=== PATIENT | male | born 1950 | race Caucasian/White ===

== ENCOUNTER 2017-06-12 12:38 | Observation (INO) | payer OTHER ==
[2017-06-12] MEDS ORDERED: NS 1,000 ML IV ONE (13:40)
--- NOTE | 2017-06-12 13:44 | EDPHY ---
HPI/HX/ROS/PE/MDM Narrative: CHIEF COMPLAINT: Possible GI Bleed HPI: This patient is a 67 year old male presenting for evaluation of a possible GI bleed. Four or five days ago, he began feeling lightheaded when he stood up. This has worsened progressively and now he feels lightheaded and as if his heart is racing if he stands or walks. He feels alright when he is sitting. Today, blood tests showed him to be very anemic, and his primary care provider referred him to the emergency department for further evaluation. The patient has noted dark stools, but denies melena or hematochezia. He denies abdominal pain or vomiting. The patient takes frequent aspirin, sometimes three times daily. His at beside reports that he has history of ulcers with hematemesis about 10 years ago. REVIEW OF SYSTEMS: Aside from elements discussed in the HPI, a comprehensive 10-point review of systems was reviewed and is negative. PMH: Hypertension. Back pain. History of gastric ulcers. SOCIAL HISTORY: . at bedside. Retired. PHYSICAL EXAM: General:Patient is alert, in no acute distress. ENT:Eyes are normal to inspection. ENT inspection normal. Neck: Normal inspection. Full range of motion. Respiratory:No respiratory distress. Breath sounds normal bilaterally. Cardiovascular: Regular rate and rhythm. Strong peripheral pulses. Normal cap refill. Abdomen:The abdomen is nontender to palpation. There are no peritoneal signs. There are normal bowel sounds. Back: Normal to inspection. No tenderness to palpation. Skin: Normal color. No rash. Warm and dry. Extremities: Normal appearance. Full range of motion. Neuro: Oriented x3. Normal motor function. Normal sensory function. ED Course: 67 y/o male presents with anemia and likely GI bleed. Plan for IV fluids, repeat labs including CBC, chemstrip, Coag, type and screen. Packed blood products ordered. Plan for admission. Patient will undergo gastroenterology consult and scope. The patient is comfortable with this plan. Patient's primary care physician consulted with gastroenterology prior to his arrival in the emergency department. Dr. Linda will consult. Patient is severely anemic. Hematocrit 20.5. 14:[address] Ureña, hospitalist. He accepts admission for anemia, GI bleed. MDM: This patient presents with severe symptomatic anemia, likely from UGIB. There are no signs of shock, sepsis, ACS, AAA or airway compromise. - Data Points Laboratory Results: Laboratory Results 06/12/17 13:49 06/12/17 13:49 06/12/17 06/12/17 06/12/17 13:49 13:49 13:49 WBC RBC Hgb Hct MCV MCH MCHC RDW Plt Count MPV Neut % (Auto) Lymph % (Auto) [place] % (Auto) Eos % (Auto) Baso % (Auto) Nucleat RBC Rel Count Absolute Neuts (auto) Absolute Lymphs (auto) Absolute Monos (auto) Absolute Eos (auto) Absolute Basos (auto) Absolute Nucleated RBC Immature Gran % Immature Gran # Platelet Estimate Polychromasia Smear Review By PT 13.5 SEC SEC (12.0-15.0) INR 1.01 (0.83-1.16) APTT 24.7 SEC SEC (23.0-38.0) Sodium 137 mEq/L mEq/L (135-145) Potassium 3.0 mEq/L L mEq/L (3.5-5.2) Chloride 100 mEq/L mEq/L (97-110) Carbon Dioxide 26 mEq/l mEq/l (22-31) Anion Gap 11 mEq/L mEq/L (8-16) BUN 34 mg/dL H mg/dL (7-23) Creatinine 1.2 mg/dL mg/dL (0.7-1.3) Estimated GFR > 60 Glucose 113 mg/dL H mg/dL (70-100) Calcium 8.8 mg/dL mg/dL (8.5-10.4) Patient ABO/Rh B POSITIVE Antibody Screen NEGATIVE Crossmatch IS Only See Detail 06/12/17 13:49 WBC 10.84 10^3/uL H 10^3/uL (3.80-9.50) RBC 2.23 10^6/uL L 10^6/uL (4.40-6.38) Hgb 6.9 g/dL L g/dL (13.7-17.5) Hct 20.5 % L % (40.0-51.0) MCV 91.9 fL fL (81.5-99.8) MCH 30.9 pg pg (27.9-34.1) MCHC 33.7 g/dL g/dL (32.4-36.7) RDW 19.0 % H % (11.5-15.2) Plt Count 232 10^3/uL 10^3/uL (150-400) MPV 9.7 fL fL (8.7-11.7) Neut % (Auto) 72.8 % % (39.3-74.2) Lymph % (Auto) 17.8 % % (15.0-45.0) [place] % (Auto) 6.6 % % (4.5-13.0) Eos % (Auto) 1.4 % % (0.6-7.6) Baso % (Auto) 0.4 % % (0.3-1.7) Nucleat RBC Rel Count 0.6 % H % (0.0-0.2) Absolute Neuts (auto) 7.89 10^3/uL H 10^3/uL (1.70-6.50) Absolute Lymphs (auto) 1.93 10^3/uL 10^3/uL (1.00-3.00) Absolute Monos (auto) 0.72 10^3/uL 10^3/uL (0.30-0.80) Absolute Eos (auto) 0.15 10^3/uL 10^3/uL (0.03-0.40) Absolute Basos (auto) 0.04 10^3/uL 10^3/uL (0.02-0.10) Absolute Nucleated RBC 0.06 10^3/uL H 10^3/uL (0-0.01) Immature Gran % 1.0 % % (0.0-1.1) Immature Gran # 0.11 10^3/uL H 10^3/uL (0.00-0.10) Platelet Estimate ADEQUATE (ADEQ) Polychromasia 1+ H Smear Review By Pending PT INR APTT Sodium Potassium Chloride Carbon Dioxide Anion Gap BUN Creatinine Estimated GFR Glucose Calcium Patient ABO/Rh Antibody Screen Crossmatch IS Only Medications Given: Discontinued Medications Sodium Chloride (Ns) 1,000 mls @ 0 mls/hr IV EDNOW ONE; Wide Open PRN Reason: Protocol Stop: 06/12/17 13:41 Last Admin: 06/12/17 13:53 Dose: 1,000 mls General Time Seen by Provider: 06/12/17 13:39 Initial Vital Signs: Initial Vital Signs Temperature (C) 36.8 C 06/12/17 12:41 Heart Rate 77 06/12/17 12:41 Respiratory Rate 16 06/12/17 12:41 Blood Pressure 143/73 H 06/12/17 12:41 O2 Sat (%) 100 06/12/17 12:41 O2 Delivery Mode Room Air Allergies/Adverse Reactions: No Known Allergies Allergy (Verified 06/12/17 14:10) Home Medications: Medication Instructions Recorded Aspirin [Aspirin 325 mg (*)] 325 mg PO DAILY 06/12/17 Atenolol/Chlorthalidone 1 each PO DAILY 06/12/17 [Atenolol-Chlorthal 50-25 Tb] Atorvastatin Calcium [Lipitor 40 40 mg PO DAILY 06/12/17 mg (*)] Ferrous Sulfate [Ferrous Sulf 325 325 mg PO DAILY 06/12/17 MG (*)] Herbals/Supplements -Info Only 1 ea PO DAILY 06/12/17 Departure - Departure Disposition: [facility] Inpatient Acute Clinical Impression: Anemia Qualifiers: Anemia type: other cause Other causes of anemia: acute posthemorrhagic Qualified Code(s): D62 - Acute posthemorrhagic anemia GI bleed Qualifiers: GI bleed type/associated pathology: unspecified gastrointestinal hemorrhage type Qualified Code(s): K92.2 - Gastrointestinal hemorrhage, unspecified Condition: Fair Report Scribed for: Vitaly Christianson Report Scribed by: Meron Machuca Date of Report: 06/12/17 Time of Report: 13:55 Physician Review and Approval Statement: Portions of this note were transcribed by an ED scribe. I personally performed the history, physical exam, and medical decision making; and confirm the accuracy of the information in the transcribed note.
[2017-06-12 14:02] LABS: PLATELET COUNT 232 10^3/uL (150-400)
[2017-06-12 14:12] LABS: INR 1.01 (0.83-1.16); PROTIME(PATIENT) 13.5 SEC (12.0-15.0)
[2017-06-12] MEDS ORDERED: ACETAMINOPHEN 325 MG TAB PO PRN (14:43)
[2017-06-12] MEDS ORDERED: ONDANSETRON DISINTEGRATING 4 MG TAB PO PRN (14:43)
[2017-06-12] MEDS ORDERED: ONDANSETRON 4 MG/2 ML VIAL IVP PRN (14:43)
[2017-06-12] MEDS ORDERED: NS W/ 20 KCl/L 1,000 ML IV SCH (14:45)
[2017-06-12] MEDS ORDERED: PANTOPRAZOLE SODIUM 40 MG VIAL IVP ONE (16:11)
[2017-06-12] MEDS ORDERED: traMADol 50 MG TAB PO PRN (16:12)
--- NOTE | 2017-06-12 16:15 | PDGENHP ---
History and Physical - Chief Complaint Acute lightheadedness - History of Present Illness Primary care provider: Dr. Son HPI: 67-year-old male presenting with acute lightheadedness characterized as dizzy, weak feeling exacerbated by standing up with onset of symptoms approximately 4-5 days ago. He has noted that the duration has been persistent and has evolved into lightheadedness with any level of ambulation, alleviated by rest. He denies any black or bloody stool, but does report associated dark, hard stool. He also or says that he uses between 2-3 mzjt-seg-nlvwyge aspirin per day, to alleviate his back pain. He has not been using any acid blocking medications consistently. He otherwise denies any fever chills or infectious symptoms. History Information - Allergies/Home Medication List Allergies/Adverse Reactions: No Known Allergies Allergy (Verified 06/12/17 14:10) Home Medications: Aspirin [Aspirin 325 mg (*)] 325 mg PO DAILY 06/12/17 [Last Taken 06/12/17] Atenolol/Chlorthalidone [Atenolol-Chlorthal 50-25 Tb] 1 each PO DAILY 06/12/17 [ Last Taken 06/11/17] Atorvastatin Calcium [Lipitor 40 mg (*)] 40 mg PO DAILY 06/12/17 [Last Taken 3 Days Ago ~06/09/17] Ferrous Sulfate [Ferrous Sulf 325 MG (*)] 325 mg PO DAILY 06/12/17 [Last Taken 06/12/17] Herbals/Supplements -Info Only 1 ea PO DAILY 06/12/17 [Last Taken Unknown] I have personally reviewed and updated: family history, medical history, social history, surgical history - Past Medical History Additional medical history: Upper GI bleed approximately 10 years ago secondary to NSAID use, utilized PPI at that time. Nephrolithiasis with lithotripsy. Hypertension - Surgical History Additional surgical history: Cystoscopy. Back surgery. Upper endoscopy 10 years ago. Most recent colonoscopy reportedly normal 2 years ago - Family History Additional family history: No family history of GI malignancy - Social History Smoking Status: Never smoked Alcohol Use: Rarely Drug Use: None Additional social history: Independent in his ADLs Review of Systems Review of Systems: ROS: 10pt was reviewed & negative except for what was stated in HPI & below Constitutional: Reports: weakness Gastrointestinal: Reports: other (Dark hard stools) Neurological: Reports: other (Lightheadedness) Physical Exam Physical Exam: Temp Pulse Resp BP Pulse Ox 36.7 C 73 14 121/55 H 96 06/12/17 16:02 06/12/17 16:02 06/12/17 16:02 06/12/17 16:02 06/12/17 16:02 Constitutional: no apparent distress, appears nourished, not in pain Eyes: PERRL, anicteric sclera, EOMI, pale conjunctiva Ears, Nose, Mouth, Throat: moist mucous membranes, hearing normal, ears appear normal, no oral mucosal ulcers Cardiovascular: regular rate and rhythym, no murmur, rub, or gallop, No edema Respiratory: no respiratory distress, no rales or rhonchi, clear to auscultation Gastrointestinal: normoactive bowel sounds, soft, non-tender abdomen, no palpable masses, No distension Skin: No abrasion, No rash Musculoskeletal: other (No tenderness over the vertebrae bodies or paraspinal muscles) Neurologic: AAOx3, sensation intact bilaterally, No weakness Psychiatric: interacting appropriately, not anxious, not encephalopathic, thought process linear Lab Data & Imaging Review 06/12/17 13:49 06/12/17 13:49 WBC 10.84 10^3/uL (3.80-9.50) H 06/12/17 13:49 RBC 2.23 10^6/uL (4.40-6.38) L 06/12/17 13:49 Hgb 6.9 g/dL (13.7-17.5) L 06/12/17 13:49 Hct 20.5 % (40.0-51.0) L 06/12/17 13:49 MCV 91.9 fL (81.5-99.8) 06/12/17 13:49 MCH 30.9 pg (27.9-34.1) 06/12/17 13:49 MCHC 33.7 g/dL (32.4-36.7) 06/12/17 13:49 RDW 19.0 % (11.5-15.2) H 06/12/17 13:49 Plt Count 232 10^3/uL (150-400) 06/12/17 13:49 MPV 9.7 fL (8.7-11.7) 06/12/17 13:49 Neut % (Auto) 72.8 % (39.3-74.2) 06/12/17 13:49 Lymph % (Auto) 17.8 % (15.0-45.0) 06/12/17 13:49 Price % (Auto) 6.6 % (4.5-13.0) 06/12/17 13:49 Eos % (Auto) 1.4 % (0.6-7.6) 06/12/17 13:49 Baso % (Auto) 0.4 % (0.3-1.7) 06/12/17 13:49 Nucleat RBC Rel Count 0.6 % (0.0-0.2) H 06/12/17 13:49 Absolute Neuts (auto) 7.89 10^3/uL (1.70-6.50) H 06/12/17 13:49 Absolute Lymphs (auto) 1.93 10^3/uL (1.00-3.00) 06/12/17 13:49 Absolute Monos (auto) 0.72 10^3/uL (0.30-0.80) 06/12/17 13:49 Absolute Eos (auto) 0.15 10^3/uL (0.03-0.40) 06/12/17 13:49 Absolute Basos (auto) 0.04 10^3/uL (0.02-0.10) 06/12/17 13:49 Absolute Nucleated RBC 0.06 10^3/uL (0-0.01) H 06/12/17 13:49 Immature Gran % 1.0 % (0.0-1.1) 06/12/17 13:49 Immature Gran # 0.11 10^3/uL (0.00-0.10) H 06/12/17 13:49 Platelet Estimate ADEQUATE (ADEQ) 06/12/17 13:49 Polychromasia 1+ H 06/12/17 13:49 PT 13.5 SEC (12.0-15.0) 06/12/17 13:49 INR 1.01 (0.83-1.16) 06/12/17 13:49 APTT 24.7 SEC (23.0-38.0) 06/12/17 13:49 Sodium 137 mEq/L (135-145) 06/12/17 13:49 Potassium 3.0 mEq/L (3.5-5.2) L 06/12/17 13:49 Chloride 100 mEq/L (97-110) 06/12/17 13:49 Carbon Dioxide 26 mEq/l (22-31) 06/12/17 13:49 Anion Gap 11 mEq/L (8-16) 06/12/17 13:49 BUN 34 mg/dL (7-23) H 06/12/17 13:49 Creatinine 1.2 mg/dL (0.7-1.3) 06/12/17 13:49 Estimated GFR > 60 06/12/17 13:49 Glucose 113 mg/dL (70-100) H 06/12/17 13:49 Calcium 8.8 mg/dL (8.5-10.4) 06/12/17 13:49 Patient ABO/Rh B POSITIVE 06/12/17 13:49 Antibody Screen NEGATIVE 06/12/17 13:49 Crossmatch IS Only See Detail 06/12/17 13:49 Assessment & Plan Assessment: 67-year-old male presents with suspected acute blood loss anemia secondary to suspected acute on chronic upper gastrointestinal hemorrhage Plan: 1. Suspected acute blood loss anemia. New problem this provider, further workup indicated. Evidenced by hemoglobin level of 6.8, detected after the patient's primary care provider ordered outpatient CBC, corresponds to patient' s symptoms generalized weakness and lightheadedness -discussed with Dr. Vitaly Christianson in the emergency department, he has reported to me that the patient has been ordered for 2 units of packed red blood cells -recommend follow-up hemoglobin level, either tomorrow a.m., or as an outpatient 2. Suspected acute on chronic upper gastrointestinal hemorrhage. Given the patient's elevated BUN, dark, hard stool without any overt melena or hematochezia, suspect the most likely cause is intermittent bleeding upper GI ulcer in the setting of nonsteroidal anti-inflammatory medication use without any GI prophylactic medication -discussed with Dr. john Linda, he reports to me that he will perform upper endoscopy today, keep patient NPO with IV fluids -IV pantoprazole 40 mg twice daily, will discharge with oral medication depending on upper endoscopy results -hold nonsteroidal anti-inflammatory medications 3. Chronic back pain. Patient takes NSAIDs chronically for this issue, advise the patient that he should utilize non NSAID methods, Tylenol and Ultram ordered , will provide him with a limited supply and recommend outpatient PCP follow-up hereafter 4. Hypokalemia. Likely secondary to poor oral intake, replete with IV fluids recheck as outpatient or in a.m. 5. Nephrolithiasis. Chronic, reviewed outside records including 06/02/2008 history and physical [address] Dr. Suleiman Justice, recounting patient's history of nephrolithiasis and indication for cysto -patient is currently not experiencing any abdominal pain or any hematuria 6. Hypertension. Chronic, hold patient's home combination medication given marginally elevated creatinine level and hypokalemia Diet. NPO with IV fluids Prophylaxis. Moderate risk patient, SCDs, hold pharm given possibility of bleed Code. Vira Collier is his MD POA Disposition. Anticipated discharge is either late in the day on 06/12, or 4/5 a.m., depending on upper endoscopy results and timing of blood transfusion, this history and physical was conducted at 2:45 p.m. On 06/12.
[2017-06-12] MEDS ORDERED: MIDAZOLAM 2 MG/2 ML VIAL ONE ×2 (17:43→18:17)
[2017-06-12] MEDS ORDERED: fentaNYL 100 MCG/2 ML INJ ONE (17:44)
[2017-06-12] MEDS ORDERED: NS 500 ML IV SCH (17:45)
--- NOTE | 2017-06-12 18:37 | PDHPUP ---
History & Physical Update H&P update statement: This history and physical update is based on an assessment of the patient which was completed after admission or registration (within 24 hours), but prior to the surgery/procedure. H&P update: H&P reviewed & patient examined, no change in patient's condition since H&P completed
--- NOTE | 2017-06-12 18:37 | PDPROPOC ---
Sedation Plan of Care Sedation Plan of Care: vital signs stable, mental status noted, patient educated of risks, benefits, alternatives, patient can tolerate sedation ASA Classification: ASA 2 Planned drugs: fentanyl, midazolam Mallampati Score: Class 2 Mallampati Reference Image: Patient passed 3-3-2 rule?: Yes
--- NOTE | 2017-06-12 18:52 | GIREPORT ---
Formerly [facility], [facility] Surgical Services - Endoscopy Department Patient Name: Isreal Shaw Procedure Date: 06/12/2017 5:48 PM Patient Type: Inpatient Attending MD/ ER Physician: Surinder Meza Procedure: Upper GI endoscopy Indications: Acute post hemorrhagic anemia, Melena Providers: Damián Linda MD Referring MD: Mathew Pond MD, Peyton Hart NP Proberta Medicines: Fentanyl 100 micrograms IV, Midazolam 8 mg IV Complications: No immediate complications. Estimated blood loss: Minimal. Description of Procedure: After obtaining informed consent, the endoscope was passed under direct vision. Throughout the procedure, the patient's blood pressure, pulse, and oxygen saturations were monitored continuously. The Endoscope was intro duced through the mouth, and advanced to the third part of duodenum. The uppe r GI endoscopy was accomplished without difficulty. The patient tolerated th e procedure well. Findings: The examined esophagus was normal. A hiatal hernia was present. A small amount of Hematin (altered blood/lagfad-gisbjz-dupn material) w as found in the entire examined stomach. Minimal inflammation was found in the gastric antrum. Biopsies were sydnie en with a cold forceps for Helicobacter pylori testing using CLOtest. Winifred mated blood loss was minimal. One non-bleeding superficial duodenal ulcer with no stigmata of bleedin g was found in the duodenal bulb. The lesion was 4 mm in largest dimension. ( ulcer in the yellow square, stenosis noted by arrows) An acquired benign-appearing, intrinsic moderate stenosis was found in the first portion of the duodenum and was traversed with auto-dilation of t he stenosis from scope passage. Small amount of heme noted form scope pass age. Estimated blood loss was minimal. The exam was otherwise without abnormality. Estimated Blood Loss: Estimated blood loss was minimal. Post Op Diagnosis: - Normal esophagus. - Small amount of Hematin (altered blood/gernvd-vdxbae-dten material) i n the entire stomach. - Gastritis. Biopsied. - One non-bleeding duodenal ulcer with no stigmata of bleeding. - Acquired duodenal stenosis. I think this is from his PUD aggravated b y his aspirin and/or NSAID use. - The examination was otherwise normal. Recommendation: - Await pathology/ARVIND results. If negative would recommend checking for h pylori by serum AB or by stool Ag. he must be of PPI for at least 2 wee ks prior to checking stool AG or breath test. Serum Ab can be checked on P PI. - Use Protonix (pantoprazole) 40 mg PO BID for 2 weeks. Then daily for 6 more weeks = 8 weeks total. Take 30-60 minutes before breakfast (and di nner when on twice per day) - If patient needs Aspirin or NSAID's fci, PCP must consider GI prophylaxis with PPI or at least an H2RA - No aspirin, ibuprofen, naproxen, or other non-steroidal anti-inflamma tory drugs for at least a few weeks, but I would consider fci avoidanc e given his DU and acquired stenosis. - [facility]. Likely home in [facility] - Advance diet as tolerated. - Return to primary care physician as previously scheduled. - Thank you for allowing me to help in your patient's care. Do not hesi shannon to call with any questions. Attending Participation: I personally performed the entire procedure. Maddi Steel M.D Damián Linda MD 06/12/2017 6:52:17 PM This report has been signed electronicallyMathew MD Maddi Number of Addenda: 0 Note Initiated On: 06/12/2017 5:48 PM [email or web address]
[2017-06-12] MEDS ORDERED: PANTOPRAZOLE SODIUM 40 MG VIAL IVP SCH (21:00)
[2017-06-12] MEDS: PANTOPRAZOLE SODIUM 40 MG TAB PO SCH (21:28)
[2017-06-13 05:16] LABS: PLATELET COUNT 140 10^3/uL (150-400)
[2017-06-13] MEDS: PANTOPRAZOLE SODIUM 40 MG TAB PO SCH (08:08)
[2017-06-13] MEDS ORDERED: Herbals/Supplements -Info Only PO SCH (09:00)
[2017-06-13] MEDS ORDERED: ATORVASTATIN CALCIUM 40 MG TAB PO SCH (09:00)
[2017-06-13] MEDS ORDERED: FERROUS SULFATE 325 MG TAB PO SCH (09:00)
--- NOTE | 2017-06-13 12:23 | ASMTCMCOM ---
CM Note CM Note Notes: Spoke w/RN, anticipate pt will dc home with support of when medically stable. CM available for any changes. DC Plan: Independent Date Signed: 06/13/2017 12:23 PM Electronically Signed By:Ashley Alvarez RN
[2017-06-13 15:35] VITALS: BP 149/73
--- NOTE | 2017-06-13 15:44 | GDS ---
[f rep st] DISCHARGE SUMMARY DISCHARGE DIAGNOSES: 1. Acute blood loss anemia. 2. Gastrointestinal bleeding, non-bleeding duodenal ulcer. 3. Chronic back pain. 4. Hypokalemia. 5. Nephrolithiasis. 6. Hypertension. CONSULTATIONS: Gastroenterology. STUDIES AND PROCEDURES DONE: Upper endoscopy. PHYSICAL EXAM: GENERAL: The patient is alert. VITAL SIGNS: Afebrile at 37.3, pulse 77, respirator y rate is 18, blood pressure is 139/71. He is saturating 96% on room air. I have seen and evaluated patient on the day of discharge. HOSPITAL COURSE: The patient is a 67-year-old male who presented to the emergency room with complain ts of acute lightheadedness and dizziness. He was evaluated and diagnosed with: 1. Acute blood loss anemia. During this hospitalization, he received transfusion of 3 units of pack ed red blood cells. Has no further signs of bleeding, and he is recommended to follow up with his [facility] physician for continued laboratory monitoring and evaluation. 2. Acute on chronic upper gastrointestinal hemorrhage. During this hospitalization, he was consulte d on by Gastroenterology. An upper EGD was performed, noting gastritis as well as a duodenal ulcer w ith evidence of stigmata of bleeding. Biopsies were taken, and the patient has been told to refrain from any nonsteroidal anti-inflammatory medications as well as aspirin. He is in agreement with this plan. 3. Chronic back pain. Patient normally takes NSAIDs as well as aspirin for this. Again, he has bee n instructed to follow up with his primary care physician and use Ultram as well as Tylenol or other nonsteroidals and gkd-bauhmqi-pdzi medications. 4. Hypokalemia. This has stabilized during this hospitalization. 5. Nephrolithiasis. This is chronic. Patient is a patient of Dr. Bowles and will follow with him in the outpatient setting. 6. Hypertension. He will continue his previously prescribed home medications. 7. Disposition. The patient will be discharged home independently. He is instructed to return to [facility] if his symptoms should reoccur or become worse, and he is aware of this. He knows that vee elias is severely anemic and will follow closely in the outpatient setting with his primary care physicia n and/or return to the hospital as needed. He is to refrain from any aspirin, as well as NSAIDs, and he has been provided a Protonix prescription at the time of disposition. Pending studies include ga strointestinal biopsies performed during this hospitalization. I have discussed the patient's dispos ition with Dr. Caleb Linda, who is in agreement with this plan. Again, the patient will follow with Gastroenterology in the outpatient setting as well as his primary care physician, Dr. Sonny Son. /[id number]
--- NOTE | 2017-06-16 14:56 | GCON ---
[f rep st] CONSULTATION DATE OF CONSULTATION: 06/12/2017 REQUESTING PHYSICIAN: Dr. Ureña. REASON FOR CONSULTATION: Melena, acute anemia. HPI: The patient is a pleasant 67-year-old male with past medical history significant for hypertensi on and hypercholesterolemia. Over the last number of days, he started to note relatively acute onset of weakness, dyspnea on exertion, lightheadedness, and dizziness. This occurred approximately 4 day s prior to admission and progressively got worse, where he was having difficulty with walking of any kind. He had black stools but said that they were formed. He does take a number of aspirin each day for his lower back pain. He does not take any nonsteroidal anti-inflammatory drugs or any GI prophy laxis. He contacted his primary care physician who judy laboratory data, noting a significant anemia . She contacted 1 of our doctors in our office, and he recommended admission for acute evaluation. He has been admitted for presumed upper GI bleed, and I am called to help evaluate in that regard. PAST MEDICAL HISTORY: He has hypertension, hypercholesterolemia, lower back pain. He also has a his tory of kidney stones. PAST SURGICAL HISTORY: Include back surgery, cystoscopies, upper endoscopy a number of years ago whe n he had an ulcer, and he had a colonoscopy approximately 2 years ago that was reportedly normal. FAMILY HISTORY: Brother had a brain tumor in his 50s. There are no colon cancer or colon polyps to his knowledge. SOCIAL HISTORY: Does not smoke. He drinks about 1 alcoholic drink every few weeks. MEDICATIONS: At home included atenolol, aspirin, Lipitor. He was also started on iron by his [place] doctor, and he takes some herbal supplements. In hospital, his medications were written for just P rotonix 40 mg IV daily. His other medications were held. ALLERGIES: No known drug allergies. REVIEW OF SYSTEMS: A complete review of systems was performed and negative other than noted in the H PI. Other pertinent negatives include no chest pain, diaphoresis, palpitations. PHYSICAL EXAM: GENERAL: Well-developed, well-nourished male, sitting in bed, no acute distress. He is receiving blood via transfusion. VITAL SIGNS: Blood pressure was 125/74, pulse was 69, respirat ions were 16. He was 98% on room air. Temperature 37.0. EYES: Anicteric. PERRL, EOMI. Mouth: N o lesions. Moist membranes. NECK: Supple. Full range of motion. No JVD. BACK: No spine tendern ess. No CVA tenderness. He does have some back discomfort, but I do not aggravate it by palpation. CARDIAC: S1, S2. Regular rate and rhythm. No murmurs, rubs, gallops appreciated. ABDOMEN: Bowel sounds are normal pitch and frequency. Abdomen is soft with mild epigastric tenderness. No rebound . No guarding. No hepatosplenomegaly. EXTREMITIES: No cyanosis, clubbing, or edema. NEUROLOGIC: Cranial nerves intact, nonfocal. SKIN: No stigmata of ancillary disease. No rashes. LABORATORY DATA: Significant for June 11, prior to admission, hemoglobin 7.6, hematocrit 23.1. On a dmission on June 12 at 1:49 in the afternoon, WBC 10.4, hemoglobin 6.9, hematocrit 20.5, platelet c ount 232. Sodium 137, potassium 3.0, chloride 100, bicarb 26, BUN 34, creatinine 1.2, glucose 113, c alcium 8.8. On June 11, his liver enzymes were normal with AST 37, ALT 67, alk phos 81, total bili 1.0. TSH was 1.84. From June 12, PT 13.5, INR 1.01, pro time 24.7. ASSESSMENT: 1. Acute post hemorrhagic anemia, most consistent with upper gastrointestinal bleed on aspirin. 2. Elevated BUN consistent with upper gastrointestinal bleed. 3. Chronic back pain. Takes aspirin. May need some other form of medications long-term or long-ter m gastrointestinal prophylaxis. 4. History of hypertension and kidney stones. RECOMMENDATIONS: 1. Continue PPI therapy. 2. Urgent EGD for evaluation of presumed upper GI bleed. 3. Packed red blood cells as per hospitalist. 4. Serial hemoglobin and hematocrit. Probably could be q.12, depending what I find on endoscopy. I f there is no acute bleed, q.12 would be appropriate. 5. Further recommendations to follow results of above and clinical course. Thank you for letting me participate in this patient's healthcare. Do not hesitate to call me with a ny questions. /[id number]/MODL
== END 2017-06-13 16:00 | disposition home or self-care (01) ==
LOC: F3E 16:00
PROVIDERS: ADMIT Internal Medicine; ATTEND Internal Medicine
PROC: 30233N1 Transfusion of Nonautologous Red Blood Cells into Peripheral Vein, Percutaneous Approach (ICD-10-PCS; 2017-06-12)
PROC: 0DB68ZX Excision of Stomach, Via Natural or Artificial Opening Endoscopic, Diagnostic (ICD-10-PCS; principal; 2017-06-12 17:52)
PROC: 0DB98ZX Excision of Duodenum, Via Natural or Artificial Opening Endoscopic, Diagnostic (ICD-10-PCS; principal; 2017-06-12 17:52)
PROC: 0DJ08ZZ Inspection of Upper Intestinal Tract, Via Natural or Artificial Opening Endoscopic (ICD-10-PCS; principal; 2017-06-12 17:52)
DX: K29.01 Acute gastritis with bleeding (principal); K26.0 Acute duodenal ulcer with hemorrhage; K31.5 Obstruction of duodenum; D62 Acute posthemorrhagic anemia; M54.5 Low back pain; Z79.82 Long term (current) use of aspirin; E87.6 Hypokalemia; N20.0 Calculus of kidney; I10 Essential (primary) hypertension; E78.00 Pure hypercholesterolemia, unspecified
CPT/HCPCS: 36430; 43239; 96360; 99285; G0378; J2250; J3010; P9016

== ENCOUNTER → 2017-06-17 | Outpatient (CLI) | payer OTHER | LOC: FIMAGING 13:41 | PROVIDERS: ATTEND Family Medicine | DX: M79.661 Pain in right lower leg (principal); M79.662 Pain in left lower leg; M79.89 Other specified soft tissue disorders ==